=== PATIENT | male | born 1975 | race Caucasian/White ===

== ENCOUNTER → 2017-02-09 | Outpatient (CLI) | payer OTHER ==
[~2017-02-09] MED LIST: ALBU6.7H INH; MELO-267 PO; NAPR220T61 PO; OMEP40CA52 PO; PANT40TA27 PO; SILD25TA; SIMV20TA6 PO
--- NOTE | 2017-02-09 13:05 | DI ---
Indication: ITS.REASON: M79.671 PAIN IN RT FOOT; M79.672 PAIN IN LEFT FOOT PROCEDURE: FOOT BILATERAL 2 VIEW: Encounter: Initial Comparison: None Findings: Right foot: No acute fracture or dislocation seen. The joint spaces are maintained. Minimal calcaneal spurring. Left foot: No acute fracture or dislocation. The joint spaces are maintained. Small inferior calcaneal spurs. Impression: Right foot: No acute osseous abnormality. Left foot: No acute osseous abnormality. .
== END ==
LOC: IMA 12:07
PROVIDERS: ATTEND Family Medicine
DX: M77.31 Calcaneal spur, right foot (principal); M79.671 Pain in right foot; M77.32 Calcaneal spur, left foot; M79.672 Pain in left foot